=== PATIENT | male | born 1960 | race Caucasian/White ===

== ENCOUNTER 2017-06-26 11:12 | Emergency (ER) | payer BC ==
[~2017-06-26] VITALS: Ht 172.7 cm; Wt 71.6 kg
[2017-06-26 11:16] VITALS: BP 130/79; PULSE 62; RESP 16; TEMP 97.8; O2SAT 100
--- NOTE | 2017-06-26 11:35 | PD ---
HPI Chief Complaint: Abdominal Pain Time Seen by Provider: 11:24 Travel History International Travel<30 days: No Contact w/Intl Traveler<30days: No Traveled to known affect area: No History of Present Illness HPI This is a 57-year-old male who presents for abdominal pain. Around 7:30 PM last night, he had gradual onset of lower abdominal pain. No associated fever, chills, nausea, vomiting, diarrhea. He had a normal bowel movement today without melena or hematochezia. No urinary urgency, frequency, dysuria, hematuria. He has been otherwise well recently without cough, congestion. He tried taking Pepcid without relief. Symptoms are mild in severity. Onset gradual. No alleviating or aggravating factors. Crampy in nature. No associated chest pain or shortness of breath. PFSH Past Medical History Medical History: Denies Significant Hx Past Surgical History Surgical History: No Previous Surgery Social History Alcohol Use: No Tobacco Use: No Substance Use: No Allergies-Medications (Allergen,Severity, Reaction): Coded Allergies: erythromycin base (Verified Allergy, Unknown, 06/26/17) Reported Meds & Prescriptions Reported Meds & Active Scripts Active Bentyl (Dicyclomine HCl) 10 Mg Cap 10 Mg PO TID PRN Review of Systems Except as stated in HPI: all other systems reviewed are Neg Physical Exam Narrative GENERAL: Alert, well nourished, well appearing patient resting on the bed in no acute distress. Vital Signs reviewed SKIN: Focused skin assessment warm/dry. HEAD: Atraumatic. Normocephalic. EYES: Pupils equal and round. No scleral icterus. No injection or drainage. ENT: No nasal bleeding or discharge. Mucous membranes pink and moist. NECK: Trachea midline. No JVD. Spontaneous, painless full range of motion with no meningismus CARDIOVASCULAR: Regular rate and rhythm. No murmur appreciated. Extremities warm and well perfused with bounding peripheral pulses RESPIRATORY: No accessory muscle use. Clear to auscultation. Breath sounds equal bilaterally. Breathing easily and speaking in full sentences GASTROINTESTINAL: Abdomen soft, mildly tender throughout lower abdomen without rigidity, rebound, guarding, nondistended. Normal bowel sounds. NEUROLOGICAL: Awake and alert. No obvious cranial nerve deficits. Motor grossly within normal limits. Normal speech. Sensation intact. Normal gait Data Data Last Documented VS Vital Signs Date Time Temp Pulse Resp B/P (MAP) Pulse Ox O2 Delivery O2 Flow Rate FiO2 06/26/17 13:56 71 16 129/85 (100) 100 Room Air 06/26/17 11:16 97.8 Orders Orders Urinalysis - C+S If Indicated (06/26/17 11:19) Complete Blood Count With Diff (06/26/17 11:31) Comprehensive Metabolic Panel (06/26/17 11:31) Lipase (06/26/17 11:31) Ct Abd/Pel W Iv Contrast(Rout) (06/26/17 11:31) Iv Access Insert/Monitor (06/26/17 11:31) Ecg Monitoring (06/26/17 11:31) Oximetry (06/26/17 11:31) Morphine Inj (Morphine Inj) (06/26/17 11:45) Ondansetron Inj (Zofran Inj) (06/26/17 11:45) Sodium Chloride 0.9% Flush (Ns Flush) (06/26/17 11:45) Iohexol 350 Inj (Omnipaque 350 Inj) (06/26/17 12:55) Ketorolac Inj (Toradol Inj) (06/26/17 13:30) Labs Laboratory Tests Test 06/26/17 11:25 06/26/17 11:52 Urine Collection Type CLEAN CATCH Urine Color YELLOW Urine Turbidity CLEAR Urine pH 6.0 Urine Specific [place] 1.019 Urine Protein NEG mg/dL Urine Glucose (UA) NEG mg/dL Urine Ketones NEG mg/dL Urine Occult Blood NEG Urine Nitrite NEG Urine Bilirubin NEG Urine Leukocyte Esterase NEG Urine RBC 0-3 /hpf Urine Squamous Epithelial Cells 0-5 /hpf Microscopic Urinalysis Comment CULT NOT INDICATED Urine Collection Time 11:25 White Blood Count 11.4 TH/MM3 Red Blood Count 5.08 MIL/MM3 Hemoglobin 15.4 GM/DL Hematocrit 45.7 % Mean Corpuscular Volume 90.0 FL Mean Corpuscular Hemoglobin 30.3 PG Mean Corpuscular Hemoglobin Concent 33.7 % Red Cell Distribution Width 12.5 % Platelet Count 274 TH/MM3 Mean Platelet Volume 7.8 FL Neutrophils (%) (Auto) 83.4 % Lymphocytes (%) (Auto) 11.7 % Monocytes (%) (Auto) 2.2 % Eosinophils (%) (Auto) 0.5 % Basophils (%) (Auto) 2.2 % Neutrophils # (Auto) 9.4 TH/MM3 Lymphocytes # (Auto) 1.3 TH/MM3 Monocytes # (Auto) 0.3 TH/MM3 Eosinophils # (Auto) 0.1 TH/MM3 Basophils # (Auto) 0.3 TH/MM3 CBC Comment DIFF FINAL Differential Comment Blood Urea Nitrogen 12 MG/DL Creatinine 0.96 MG/DL Random Glucose 117 MG/DL Total Protein 7.4 GM/DL Albumin 3.9 GM/DL Calcium Level 8.7 MG/DL Alkaline Phosphatase 80 U/L Aspartate Amino Transf (AST/SGOT) 22 U/L Alanine Aminotransferase (ALT/SGPT) 31 U/L Total Bilirubin 0.5 MG/DL Sodium Level 139 MEQ/L Potassium Level 4.1 MEQ/L Chloride Level 104 MEQ/L Carbon Dioxide Level 28.3 MEQ/L Anion Gap 7 MEQ/L Estimat Glomerular Filtration Rate 80 ML/MIN Lipase 196 U/L MDM Medical Decision Making Medical Screen Exam Complete: Yes Emergency Medical Condition: Yes Medical Record Reviewed: Yes Interpretation(s) Laboratory Tests Test 06/26/17 11:25 06/26/17 11:52 Urine Collection Type CLEAN CATCH Urine Color YELLOW Urine Turbidity CLEAR Urine pH 6.0 Urine Specific [place] 1.019 Urine Protein NEG mg/dL Urine Glucose (UA) NEG mg/dL Urine Ketones NEG mg/dL Urine Occult Blood NEG Urine Nitrite NEG Urine Bilirubin NEG Urine Leukocyte Esterase NEG Urine RBC 0-3 /hpf Urine Squamous Epithelial Cells 0-5 /hpf Microscopic Urinalysis Comment CULT NOT INDICATED Urine Collection Time 11:25 White Blood Count 11.4 TH/MM3 Red Blood Count 5.08 MIL/MM3 Hemoglobin 15.4 GM/DL Hematocrit 45.7 % Mean Corpuscular Volume 90.0 FL Mean Corpuscular Hemoglobin 30.3 PG Mean Corpuscular Hemoglobin Concent 33.7 % Red Cell Distribution Width 12.5 % Platelet Count 274 TH/MM3 Mean Platelet Volume 7.8 FL Neutrophils (%) (Auto) 83.4 % Lymphocytes (%) (Auto) 11.7 % Monocytes (%) (Auto) 2.2 % Eosinophils (%) (Auto) 0.5 % Basophils (%) (Auto) 2.2 % Neutrophils # (Auto) 9.4 TH/MM3 Lymphocytes # (Auto) 1.3 TH/MM3 Monocytes # (Auto) 0.3 TH/MM3 Eosinophils # (Auto) 0.1 TH/MM3 Basophils # (Auto) 0.3 TH/MM3 CBC Comment DIFF FINAL Differential Comment Blood Urea Nitrogen 12 MG/DL Creatinine 0.96 MG/DL Random Glucose 117 MG/DL Total Protein 7.4 GM/DL Albumin 3.9 GM/DL Calcium Level 8.7 MG/DL Alkaline Phosphatase 80 U/L Aspartate Amino Transf (AST/SGOT) 22 U/L Alanine Aminotransferase (ALT/SGPT) 31 U/L Total Bilirubin 0.5 MG/DL Sodium Level 139 MEQ/L Potassium Level 4.1 MEQ/L Chloride Level 104 MEQ/L Carbon Dioxide Level 28.3 MEQ/L Anion Gap 7 MEQ/L Estimat Glomerular Filtration Rate 80 ML/MIN Lipase 196 U/L Last 24 hours Impressions Abdomen/Pelvis CT 06/26/17 1131 Signed Impressions: Service Date/Time: Saturday, June 26, 2017 12:45 - CONCLUSION: 1. No acute finding is identified to explain the patient's abdominal pain. 2. There is a 4 mm noncalcified pulmonary nodule in the right lower lobe. If the patient has a smoking history or is at high risk for pulmonary malignancy, consider one year followup noncontrast chest CT. Otherwise, if the patient is low risk for pulmonary malignancy, no specific followup is needed. Murali Sanchez MD Differential Diagnosis UTI, kidney stone, appendicitis, diverticulitis, colitis Narrative Course IV access was established. Labs, imaging were performed. Patient was given morphine, Zofran and Toradol with improvement in his pain. He has had no vomiting in the emergency department. I reviewed the results of the workup with him including the pulmonary nodule noted on CT. Patient's last colonoscopy was 15 years ago. Upon reexamination at 2 PM: Patient is resting comfortably in the bed. We discussed plan for discharge with supportive care, Bentyl as needed for abdominal cramping and close outpatient follow-up. Patient understands the importance of close outpatient follow-up. He understands he may require further testing and treatment as an outpatient. He understands strict return indications. He is comfortable with this plan and eager to go home. Diagnosis Primary Impression: Abdominal pain Qualified Codes: R10.30 - Lower abdominal pain, unspecified Referrals: Primary Care Physician 2 days Patient Instructions: Abdominal Pain (ED), General Instructions, Narcotic given in the ED Additional Instructions: Drink plenty of fluids to stay well hydrated. Use Bentyl as needed for abdominal cramping. Follow-up with primary physician in 2 days for recheck. Call today to make an appointment. Return with worsening symptoms including fever, vomiting, worsening pain. Med/Other Pt SpecificInfo: Prescription(s) given Scripts Dicyclomine (Bentyl) 10 Mg Cap 10 MG PO TID Y for ABDOMINAL CRAMPING, #15 CAP 0 Refills Prov: Sonya Portillo MD 06/26/17 Disposition: 01 DISCHARGE HOME Condition: Stable Sonya Portillo MD Jun 26, 2017 11:35
[2017-06-26 11:38] LABS: BILIRUBIN, URINE NEG (NEG); BLOOD, URINE NEG (NEG); GLUCOSE,URINE NEG (NEG); KETONE, URINE NEG (NEG); NITRITE,URINE NEG (NEG); URINE LEUKOCYTE ESTERASE NEG (NEG)
[2017-06-26 11:42] LABS: RBC, URINE 0-3 /hpf (0-3); SQUAMOUS EPITHELIAL CELL URINE 0-5 /hpf (0-5); URINE COLOR YELLOW (YELLW/STRAW)
[2017-06-26] MEDS ORDERED: MORPHINE SULFATE 4 MG/ML INJ IV PUSH ONE (11:45)
[2017-06-26] MEDS ORDERED: ONDANSETRON HCL 4 MG/2 ML VIAL IVP ONE (11:45)
[2017-06-26 12:00] VITALS: O2SAT 96
[2017-06-26 12:01] LABS: AUTOMATED NEUTROPHIL # 9.4 TH/MM3 (1.8-7.7); BASOPHIL # 0.3 TH/MM3 (0-0.2); BASOPHIL % 2.2 % (0.0-2.0); EOSINOPHIL # 0.1 TH/MM3 (0-0.4); EOSINOPHIL % 0.5 % (0.0-4.0); HEMATOCRIT 45.7 % (39.0-51.0); HEMOGLOBIN 15.4 GM/DL (13.0-17.0); LYMPH % 11.7 % (9.0-44.0); LYMPHOCYTE # 1.3 TH/MM3 (1.0-4.8); MEAN CORPUSCULAR HEMOGLOBIN 30.3 PG (27.0-34.0); MEAN CORPUSCULAR HGB CONC 33.7 % (32.0-36.0); MEAN PLATELET VOLUME 7.8 FL (7.0-11.0); MONO % 2.2 % (0.0-8.0); MONOCYTE # 0.3 TH/MM3 (0-0.9); NEUT % 83.4 % (16.0-70.0); PLATELET COUNT 274 TH/MM3 (150-450); RED BLOOD COUNT 5.08 MIL/MM3 (4.50-5.90); RED CELL DISTRIBUTION WIDTH 12.5 % (11.6-17.2); WHITE BLOOD COUNT 11.4 TH/MM3 (4.0-11.0)
[2017-06-26 12:07] LABS: CHLORIDE 104 MEQ/L (98-107); SODIUM (NA) 139 MEQ/L (136-145)
[2017-06-26 12:12] LABS: CALCIUM 8.7 MG/DL (8.5-10.1)
[2017-06-26 12:13] LABS: ALBUMIN 3.9 GM/DL (3.4-5.0); BICARBONATE 28.3 MEQ/L (21.0-32.0); BLOOD UREA NITROGEN 12 MG/DL (7-18); GLUCOSE,RANDOM 117 MG/DL (74-106)
[2017-06-26 12:16] LABS: ALT (GPT) 31 U/L (12-78); AST (GOT) 22 U/L (15-37); CREATININE 0.96 MG/DL (0.60-1.30); GLOMERULAR FILTRATION RATE 80 ML/MIN (>89)
[2017-06-26 12:17] LABS: TOTAL BILIRUBIN ADULT 0.5 MG/DL (0.2-1.0); TOTAL PROTEIN 7.4 GM/DL (6.4-8.2)
[2017-06-26 12:19] LABS: ALKALINE PHOSPHATASE 80 U/L (45-117)
[2017-06-26] MEDS: SODIUM CHLORIDE 0.9% FLUSH 10 ML FLUSH IV FLUSH PRN ×2 (12:31→13:53)
[2017-06-26] MEDS ORDERED: IOHEXOL 350 MG/ML 10 ML VIAL (for RAD DIAG) IVCONTRAST ONE (12:55)
--- NOTE | 2017-06-26 13:14 | RADRPT ---
EXAM DATE/TIME: 06/26/2017 12:45 [facility] COMPARISON: No previous studies available for comparison. INDICATIONS : Lower abdominal pain. IV CONTRAST: 85 cc Omnipaque 350 (iohexol) IV ORAL CONTRAST: No oral contrast ingested. RADIATION DOSE: 7.44 CTDIvol (mGy) MEDICAL HISTORY : None SURGICAL HISTORY : None. ENCOUNTER: Initial ACUITY: 1 day PAIN SCALE: 8/10 LOCATION: Bilateral lower quadrant TECHNIQUE: Volumetric scanning of the abdomen and pelvis was performed. Using automated exposure control and ad justment of the mA and/or kV according to patient size, radiation dose was kept as low as reasonably achievable to obtain optimal diagnostic quality images. DICOM format image data is available electro nically for review and comparison. FINDINGS: LOWER LUNGS: There is a 4 mm right lower lobe subpleural noncalcified pulmonary nodule. Otherwise, lung bases are clear. LIVER: Homogeneous density without lesion. There is no dilation of the biliary tree. No calcified [place] es. SPLEEN: Normal size without lesion. PANCREAS: Within normal limits. KIDNEYS: Normal in size and shape. There is no mass, stone or hydronephrosis. An incidental 4 mm low density lesion in the right mid kidney is too small to characterize. ADRENAL GLANDS: Within normal limits. VASCULAR: There is no aortic aneurysm. There is mild atherosclerotic disease. BOWEL/MESENTERY: The stomach, small bowel, and colon demonstrate no acute abnormality. There is no free intraperitone al air or fluid. Appendix is not visualized. ABDOMINAL WALL: Within normal limits. RETROPERITONEUM: There is no lymphadenopathy. BLADDER: No wall thickening or mass. REPRODUCTIVE: Within normal limits. INGUINAL: There is no lymphadenopathy or hernia. MUSCULOSKELETAL: There are mild degenerative changes of the lumbar spine. CONCLUSION: 1. No acute finding is identified to explain the patient's abdominal pain. 2. There is a 4 mm noncalcified pulmonary nodule in the right lower lobe. If the patient has a smokin g history or is at high risk for pulmonary malignancy, consider one year followup noncontrast chest C T. Otherwise, if the patient is low risk for pulmonary malignancy, no specific followup is needed. Murali Sanchez MD on June 26, 2017 at 13:07 Board Certified Radiologist. This report was verified electronically.
[2017-06-26] MEDS ORDERED: KETOROLAC TROMETHAMINE 30 MG/ML (IVP) VIAL IV PUSH ONE (13:30)
[2017-06-26 13:56] VITALS: BP 129/85; PULSE 71; RESP 16; O2SAT 100
[2017-06-26] MEDS ORDERED: DICY10 PO (14:03)
== END 2017-06-26 14:55 | disposition home or self-care (01) ==
LOC: PHED 11:12
DX: R10.30 Lower abdominal pain, unspecified (principal); R91.1 Solitary pulmonary nodule; Z88.1 Allergy status to other antibiotic agents
CPT/HCPCS: 74177; 80053; 81001; 83690; 85025; 96374; 96375; 99284; J1885; J2270; J2405; Q9967